=== PATIENT | male | born 1950 | race Caucasian/White ===

== ENCOUNTER 2021-06-15 09:00 | Inpatient (IN) | payer MEDICARE ==
[~2021-06-15] VITALS: Ht 185.4 cm; Wt 104.5 kg
[2021-06-15 10:34] LABS: BASOPHILS % (AUTO) 0.5 % (0.0-5.0); EOSINOPHILS % (AUTO) 4.6 % (0.0-8.0); HEMATOCRIT 40.9 % (42-54); LYMPHOCYTES % (AUTO) 27.5 % (21.0-51.0); MEAN CORPUSCULAR HEMOGLOBIN 30.7 pg (27.0-33.0); MONOCYTES % (AUTO) 8.7 % (3.0-13.0); NEUTROPHILS % (AUTO) 57.9 % (40.0-77.0); PLATELET COUNT (AUTO) 217 K/uL (130-400); RED CELL DISTRIBUTION WIDTH 13.2 % (11.0-15.5); WHITE BLOOD COUNT (AUTO) 9.2 K/uL (4.8-10.8)
[2021-06-15 10:47] LABS: APPEARANCE,URINE Clear (CLEAR); BILIRUBIN,URINE Negative (NEGATIVE); COLOR,URINE Yellow (YELLOW); GLUCOSE, URINE (UA) Negative (NEGATIVE); KETONES,URINE Trace mg/dL (NEGATIVE); LEUKOCYTE ESTERASE ,URINE Negative (NEGATIVE); NITRATE,URINE Negative (NEGATIVE); OCCULT BLOOD,URINE Negative (NEGATIVE); PROTEIN,URINE Negative (NEGATIVE)
[2021-06-15 10:50] LABS: CREATININE 1.1 mg/dL (0.5-1.5); POTASSIUM 4.6 mmol/L (3.5-5.1)
[2021-06-15 11:16] LABS: BACTERIA,URINE Rare /HPF (None Seen); RBC,URINE 0-1 /HPF (0-1); SQUAMOUS EPITHELIAL CELL,UR Rare /HPF (0-2); WBC,URINE 0-1 /HPF (0-1)
[2021-06-15 14:36] VITALS: BP 145/78
[2021-06-17] VITALS (26 sets, daily range): BP systolic 103–156; BP diastolic 59–86
[2021-06-17] MEDS ORDERED: LISI10TA24 PO (08:10)
[2021-06-17] MEDS ORDERED: MONT-39 PO (08:10)
[2021-06-17] MEDS ORDERED: ASPI-1443 PO (08:10)
[2021-06-17] MEDS ORDERED: ATOR40TA71 PO (08:10)
[2021-06-17] MEDS ORDERED: FINA5TAB41 PO (08:10)
[2021-06-17] MEDS ORDERED: TAMS-1 PO (08:10)
[2021-06-17] MEDS ORDERED: CLINDAMYCIN IVPB 900MG/50ML 50 ML IV ONE ×2 (08:19→17:08)
[2021-06-17] MEDS ORDERED: LACTATED RINGERS 1000ML 1,000 ML IV ONE (08:19)
[2021-06-17] MEDS ORDERED: ACETAMINOPHEN 500 MG TABLET ONE (09:26)
[2021-06-17] MEDS ORDERED: TRANEXAMIC ACID 1000MG/10ML ONE ×2 (09:48→15:10)
[2021-06-17] MEDS ORDERED: VANCOMYCIN 1G VIAL ONE (09:48)
[2021-06-17] MEDS ORDERED: MIDAZOLAM HCL 1 MG/ML 2ML VIAL ONE (10:58)
[2021-06-17] MEDS ORDERED: PROPOFOL 10 MG/ML 20ML VIAL IV ONE (10:58)
[2021-06-17] MEDS ORDERED: LIDOCAINE PF 100MG/5ML (2%) SYRINGE 5ML ONE (10:58)
[2021-06-17] MEDS ORDERED: FENTANYL CITRATE PF 50 MCG/1 ML 2ML VIAL ONE ×3 (10:59→13:36)
[2021-06-17] MEDS ORDERED: ROCURONIUM 10MG/1ML SYR 10 MG/ML ML ONE ×2 (10:59→11:57)
[2021-06-17] MEDS ORDERED: ROPIVACAINE 0.5% 5MG/ML 30ML IJ ONE (11:03)
[2021-06-17] MEDS ORDERED: DEXAMETHASONE SOD PHOSPHATE 10MG/ML 1ML VIAL ONE (11:10)
[2021-06-17] MEDS ORDERED: EPHEDRINE SULFATE 50 MG/ML AMPULE ONE (11:29)
[2021-06-17] MEDS ORDERED: VANCOMYCIN 1G VIAL IRRIG ONE (12:16)
[2021-06-17] MEDS ORDERED: PHENYLEPHRINE HCL 10 MG/ML 1ML VIAL IV ONE (14:20)
[2021-06-17] MEDS ORDERED: LIDOCAINE HCL-MPF 1% 2ML VIAL IV PRN (14:30)
[2021-06-17] MEDS ORDERED: TRAMADOL HCL 50 MG TABLET PO PRN (14:30)
[2021-06-17] MEDS: 0.9%NACL 1000ML 1,000 ML IV SCH ×2 (14:30→19:51)
[2021-06-17] MEDS ORDERED: CALCIUM CARB 500MG PO PRN (14:30)
[2021-06-17] MEDS: ACETAMINOPHEN 500 MG TABLET PO SCH ×2 (14:30→19:48)
[2021-06-17] MEDS ORDERED: POTASSIUM CHLORIDE 20MEQ/100ML 100 ML IV PRN (14:30)
[2021-06-17] MEDS ORDERED: TEMAZEPAM 15 MG CAPSULE PO PRN (14:30)
[2021-06-17] MEDS ORDERED: KETOROLAC 15MG/ML VIAL (15MG/ML) IV PRN (14:30)
[2021-06-17] MEDS ORDERED: POTASSIUM CHLORIDE 10% ELIXIR 20 MEQ/15 ML UDCUP PO PRN (14:30)
[2021-06-17] MEDS ORDERED: KCL 20 MEQ ERTAB PO PRN (14:30)
[2021-06-17] MEDS ORDERED: DiphenhydrAMINE HCL 50 MG/ML VIAL IVP PRN (14:30)
[2021-06-17] MEDS ORDERED: FERROUS FUMARATE 324 MG TABLET PO PRN (14:30)
[2021-06-17] MEDS ORDERED: OXYCODONE HCL 5 MG TAB PO PRN ×2 (14:30)
[2021-06-17] MEDS ORDERED: ONDANSETRON 4MG INJ IVP PRN (14:30)
[2021-06-17] MEDS: CLINDAMYCIN IVPB 900MG/50ML 50 ML IVPB SCH (17:10)
[2021-06-17] MEDS ORDERED: KETOROLAC 30MG VIAL (30MG/ML) ONE (19:22)
[2021-06-17] MEDS: PREGABALIN 25 MG CAP PO SCH (19:47)
[2021-06-17] MEDS: ASPIRIN 81 MG EC TAB PO SCH (19:48)
[2021-06-17] MEDS: ATORVASTATIN 40 MG TABLET PO SCH (19:48)
[2021-06-17] MEDS: FINASTERIDE 5 MG TABLET PO SCH (19:48)
[2021-06-17] MEDS: MONTELUKAST SODIUM 10 MG TAB PO SCH (19:48)
[2021-06-17] MEDS: FAMOTIDINE 20MG TAB PO SCH (19:48)
[2021-06-17] MEDS ORDERED: LISINOPRIL 10 MG TABLET PO SCH (21:00)
[2021-06-17] MEDS ORDERED: ASPIRIN 81 MG EC TAB PO SCH (21:00)
[2021-06-17] MEDS ORDERED: TAMSULOSIN HCL 0.4 MG CAP.ER.24H PO SCH (21:00)
[2021-06-18] VITALS (15 sets, daily range): BP systolic 86–145; BP diastolic 50–74
[2021-06-18] MEDS: CLINDAMYCIN IVPB 900MG/50ML 50 ML IVPB SCH (03:54)
[2021-06-18] MEDS: ACETAMINOPHEN 500 MG TABLET PO SCH ×3 (03:55→20:00)
[2021-06-18 05:07] LABS: HEMATOCRIT 33.3 % (42-54); MEAN CORPUSCULAR HEMOGLOBIN 30.7 pg (27.0-33.0); RED BLOOD CELL COUNT(AUTO) 3.58 MIL/uL (4.50-6.20); RED CELL DISTRIBUTION WIDTH 13.3 % (11.0-15.5); WHITE BLOOD COUNT (AUTO) 13.1 K/uL (4.8-10.8)
[2021-06-18] MEDS: POLYETHYLENE GLYCOL 3350 17 GM POWD.PACK PO SCH (08:23)
[2021-06-18] MEDS: ASPIRIN 81 MG EC TAB PO SCH ×2 (08:24→19:59)
[2021-06-18] MEDS: FAMOTIDINE 20MG TAB PO SCH ×2 (08:24→20:00)
[2021-06-18] MEDS: PREGABALIN 25 MG CAP PO SCH ×2 (08:24→19:59)
[2021-06-18] MEDS ORDERED: TAMSULOSIN HCL 0.4 MG CAP.ER.24H PO SCH (09:00)
[2021-06-18] MEDS ORDERED: ACETAMINOPHEN WITH CODEINE 1 TAB TAB PO PRN (09:30)
[2021-06-18] MEDS ORDERED: 0.9% NACL 500ML IV.SOLN 500 ML IV SCH (11:30)
[2021-06-18] MEDS: ACETAMINOPHEN WITH CODEINE 1 TAB TAB PO PRN (13:05)
[2021-06-18] MEDS ORDERED: KETOROLAC 30MG VIAL (30MG/ML) ONE ×2 (13:54→19:56)
[2021-06-18] MEDS: 0.9%NACL 1000ML 1,000 ML IV SCH (15:00)
[2021-06-18] MEDS: MONTELUKAST SODIUM 10 MG TAB PO SCH (19:59)
[2021-06-18] MEDS: ATORVASTATIN 40 MG TABLET PO SCH (19:59)
[2021-06-18] MEDS: FINASTERIDE 5 MG TABLET PO SCH (20:00)
[2021-06-19] MEDS: ACETAMINOPHEN WITH CODEINE 1 TAB TAB PO PRN ×3 (03:11→15:15)
[2021-06-19] MEDS: ACETAMINOPHEN 500 MG TABLET PO SCH ×2 (03:27→14:30)
[2021-06-19] MEDS: 0.9%NACL 1000ML 1,000 ML IV SCH (03:49)
[2021-06-19 04:17] VITALS: BP 155/70
[2021-06-19 08:08] VITALS: BP 146/80
[2021-06-19] MEDS: POLYETHYLENE GLYCOL 3350 17 GM POWD.PACK PO SCH (08:21)
[2021-06-19] MEDS: PREGABALIN 25 MG CAP PO SCH (08:22)
[2021-06-19] MEDS: ASPIRIN 81 MG EC TAB PO SCH (08:22)
[2021-06-19] MEDS: FAMOTIDINE 20MG TAB PO SCH (08:22)
[2021-06-19 11:18] VITALS: BP 122/68
[2021-06-19] MEDS ORDERED: KETOROLAC 30MG VIAL (30MG/ML) IV PRN (15:00)
[2021-06-19] MEDS ORDERED: TAMSULOSIN HCL 0.4 MG CAP.ER.24H PO SCH (21:00)
[2021-06-20] MEDS ORDERED: BISACODYL 10 MG SUPP.RECT RC PRN (14:30)
== END 2021-06-19 17:15 | DRG 470 ==
LOC: OBSVTOIN 06-17 07:42 → DAHIP 06-17 07:42 → 4BH 06-17 15:35
PROVIDERS: ADMIT Orthopaedic Surgery; ATTEND Orthopaedic Surgery
PROC: 0SRC0J9 Replacement of Right Knee Joint with Synthetic Substitute, Cemented, Open Approach (ICD-10-PCS; principal; 2021-06-17 10:58)
DX: M17.11 Unilateral primary osteoarthritis, right knee (principal); E78.00 Pure hypercholesterolemia, unspecified; I10 Essential (primary) hypertension; I95.2 Hypotension due to drugs; Z20.822 Contact with and (suspected) exposure to COVID-19; Z91.040 Latex allergy status; Z88.0 Allergy status to penicillin; Z88.2 Allergy status to sulfonamides; Z88.8 Allergy status to other drugs, medicaments and biological substances
CPT/HCPCS: 36415; 80048; 81001; 85025; 85027; 87088; 87635; 87641; 88305; 88311; 97039; G0378; J1100; J1885; J2001; J2250; J2370; J2704; J2795; J3010; J3370; J3490; J7120